=== PATIENT | male | born 1965 | race African-American/Black ===

== ENCOUNTER 2018-08-25 20:35 | Emergency (ER) | payer MEDICAID ==
[~2018-08-25] VITALS: Ht 182.9 cm; Wt 100.0 kg
[~2018-08-25 20:35] MED LIST: SEROQUEL
[2018-08-25 22:20] VITALS: BP 125/75
[2018-08-25] MEDS ORDERED: LORAZEPAM 0.5MG TABLET PO ONE (22:30)
== END 2018-08-25 22:29 | disposition home or self-care (01) ==
LOC: ER 21:16
DX: F41.1 Generalized anxiety disorder (principal); F20.9 Schizophrenia, unspecified
CPT/HCPCS: 99284

== ENCOUNTER 2019-03-08 22:44 | Emergency (ER) | payer MEDICAID ==
[~2019-03-08] VITALS: Ht 182.9 cm; Wt 102.0 kg
[2019-03-08 23:59] LABS: BASOPHILS % 0.6 % (0.0-2.0); EOSINOPHILS % 0.6 % (0.0-5.0); HEMATOCRIT. 41.8 % (42.0-52.0); HEMOGLOBIN. 14.2 g/dL (14.0-18.0); LYMPHOCYTES % 20.1 % (20.0-50.0); MEAN CORPUSCULAR VOLUME 97.2 fL (80.0-94.0); NEUTROPHILS % 66.7 % (40.0-76.0); PLATELET 277 x1000/uL (130-400); RED CELL DISTRIBUTION WIDTH 14.2 % (11.6-14.6)
[2019-03-09 00:05] LABS: CHLORIDE 112 mEq/L (98-107)
[2019-03-09 00:09] LABS: ETHANOL BLOOD < 10 mg/dL
[2019-03-09 01:47] LABS: CLARITY URINE CLEAR (CLEAR); COLOR URINE YELLOW (YELLOW); KETONES URINE TRACE (NEGATIVE); LEUKOCYTE ESTERASE URINE NEGATIVE (NEGATIVE); NITRITE URINE NEGATIVE (NEGATIVE); OCCULT BLOOD URINE NEGATIVE (NEGATIVE); PH URINE 5.5 (4.5-8.0); PROTEIN URINE 1+ (NEGATIVE); SPECIFIC GRAVITY URINE 1.026 (1.005-1.030)
[2019-03-09 01:59] LABS: *AMPHETAMINES SCREEN URINE NEGATIVE (NEGATIVE); *BARBITURATES SCREEN URINE NEGATIVE (NEGATIVE); *BENZODIAZEPINES SCREEN URINE NEGATIVE (NEGATIVE); *COCAINE SCREEN URINE PRESUMTIVE POSITIVE (NEGATIVE); METHADONE URINE SCREEN NEGATIVE (NEGATIVE)
[2019-03-09 02:00] LABS: CANNABINOID URINE SCREEN PRESUMTIVE POSITIVE (NEGATIVE); OPIATES URINE SCREEN NEGATIVE (NEGATIVE); PHENCYCLIDINE URINE SCREEN PRESUMTIVE POSITIVE (NEGATIVE)
[2019-03-09 10:45] VITALS: BP 130/74
== END 2019-03-09 11:00 | disposition home or self-care (01) ==
LOC: ER 22:44
DX: F16.10 Hallucinogen abuse, uncomplicated (principal); F12.10 Cannabis abuse, uncomplicated; F14.10 Cocaine abuse, uncomplicated; R45.850 Homicidal ideations; F31.9 Bipolar disorder, unspecified; F20.9 Schizophrenia, unspecified; F43.10 Post-traumatic stress disorder, unspecified
CPT/HCPCS: 36415; 80305; 80320; 99285; G0480

== ENCOUNTER 2019-03-21 20:00 | Emergency (ER) | payer MEDICAID ==
[~2019-03-21] VITALS: Ht 182.9 cm; Wt 106.0 kg
[2019-03-21] MEDS ORDERED: NALOXONE HCL 0.4 MG/ML 1ML VIAL IM ONE (20:30)
[2019-03-21 21:47] LABS: BASOPHILS % 0.8 % (0.0-2.0); EOSINOPHILS % 1.4 % (0.0-5.0); HEMATOCRIT. 41.4 % (42.0-52.0); HEMOGLOBIN. 13.8 g/dL (14.0-18.0); LYMPHOCYTES % 28.6 % (20.0-50.0); MEAN CORPUSCULAR HEMOGLOBIN 32.9 pg (28.0-32.0); MEAN CORPUSCULAR VOLUME 98.7 fL (80.0-94.0); MEAN PLATELET VOLUME 7.1 fl (7.4-10.4); NEUTROPHILS % 58.2 % (40.0-76.0); PLATELET 272 x1000/uL (130-400); RED CELL DISTRIBUTION WIDTH 13.9 % (11.6-14.6)
[2019-03-21 21:50] LABS: CHLORIDE 114 mEq/L (98-107)
[2019-03-21 21:54] LABS: ETHANOL BLOOD 164 mg/dL
[2019-03-22 00:15] VITALS: BP 115/74
[2019-03-22 00:45] LABS: CLARITY URINE CLEAR (CLEAR); COLOR URINE YELLOW (YELLOW); KETONES URINE TRACE (NEGATIVE); LEUKOCYTE ESTERASE URINE NEGATIVE (NEGATIVE); NITRITE URINE NEGATIVE (NEGATIVE); OCCULT BLOOD URINE NEGATIVE (NEGATIVE); PROTEIN URINE NEGATIVE (NEGATIVE); UROBILINOGEN URINE 0.2 E.U./dL (0.2-1.0)
[2019-03-22 01:15] LABS: *AMPHETAMINES SCREEN URINE NEGATIVE (NEGATIVE); *BARBITURATES SCREEN URINE NEGATIVE (NEGATIVE); *BENZODIAZEPINES SCREEN URINE NEGATIVE (NEGATIVE); *COCAINE SCREEN URINE NEGATIVE (NEGATIVE)
[2019-03-22 01:16] LABS: CANNABINOID URINE SCREEN PRESUMTIVE POSITIVE (NEGATIVE); METHADONE URINE SCREEN NEGATIVE (NEGATIVE); OPIATES URINE SCREEN NEGATIVE (NEGATIVE); PHENCYCLIDINE URINE SCREEN PRESUMTIVE POSITIVE (NEGATIVE)
== END 2019-03-22 00:54 | disposition left against medical advice (07) ==
LOC: ER 20:00
DX: T51.0X1A Toxic effect of ethanol, accidental (unintentional), initial encounter (principal); F31.9 Bipolar disorder, unspecified; F20.9 Schizophrenia, unspecified; F14.10 Cocaine abuse, uncomplicated; F12.10 Cannabis abuse, uncomplicated; Y92.89 Other specified places as the place of occurrence of the external cause
CPT/HCPCS: 36415; 70450; 80053; 80305; 80307; 80320; 80329; 81003; 85025; 96372; 99284; J2310; Z7610; G0480

== ENCOUNTER 2020-02-07 02:45 | Emergency (ER) | payer MEDICAID ==
[~2020-02-07] VITALS: Ht 180.3 cm; Wt 91.0 kg
[2020-02-07] MEDS ORDERED: HALOPERIDOL LACTATE 5MG/ML VIAL IM ONE ×3 (03:00→08:30)
[2020-02-07] MEDS ORDERED: LORAZEPAM 2MG/ML CPJ IM ONE (03:15)
[2020-02-07] MEDS ORDERED: DIPHENHYDRAMINE 50MG/ML VIAL IM ONE (03:15)
[2020-02-07] MEDS ORDERED: LORAZEPAM 2MG/ML CPJ IM PRN (08:15)
[2020-02-07] MEDS ORDERED: LORAZEPAM 2MG/ML CPJ IM STA (12:30)
[2020-02-07] MEDS ORDERED: OLANZAPINE 10 MG/VIAL IM STA (12:30)
[2020-02-07 12:46] LABS: BASOPHILS % 0.5 % (0.0-2.0); EOSINOPHILS % 0.5 % (0.0-5.0); HEMATOCRIT. 44.6 % (42.0-52.0); HEMOGLOBIN. 15.2 g/dL (14.0-18.0); LYMPHOCYTES % 19.5 % (20.0-50.0); MEAN CORPUSCULAR HEMOGLOBIN 33.3 pg (28.0-32.0); MEAN CORPUSCULAR VOLUME 97.7 fL (80.0-94.0); MEAN PLATELET VOLUME 7.1 fl (7.4-10.4); MONOCYTES % 11.1 % (2.0-8.0); NEUTROPHILS % 68.4 % (40.0-76.0); PLATELET 247 x1000/uL (130-400); RED BLOOD CELL COUNT 4.56 mill/uL (4.7-6.1); RED CELL DISTRIBUTION WIDTH 13.4 % (11.6-14.6)
[2020-02-07 12:53] LABS: CHLORIDE 110 mEq/L (98-107)
[2020-02-07 12:57] LABS: ETHANOL BLOOD < 10 mg/dL
[2020-02-07 17:24] LABS: CLARITY URINE CLEAR (CLEAR); COLOR URINE YELLOW (YELLOW); KETONES URINE TRACE (NEGATIVE); LEUKOCYTE ESTERASE URINE NEGATIVE (NEGATIVE); NITRITE URINE NEGATIVE (NEGATIVE); OCCULT BLOOD URINE NEGATIVE (NEGATIVE); PH URINE 5.5 (4.5-8.0); PROTEIN URINE NEGATIVE (NEGATIVE); SPECIFIC GRAVITY URINE 1.022 (1.005-1.030); UROBILINOGEN URINE 0.2 E.U./dL (0.2-1.0)
[2020-02-07 17:33] LABS: METHADONE URINE SCREEN NEGATIVE (NEGATIVE); OPIATES URINE SCREEN NEGATIVE (NEGATIVE)
[2020-02-07 17:34] LABS: *AMPHETAMINES SCREEN URINE NEGATIVE (NEGATIVE); *BARBITURATES SCREEN URINE NEGATIVE (NEGATIVE); *BENZODIAZEPINES SCREEN URINE NEGATIVE (NEGATIVE); *COCAINE SCREEN URINE NEGATIVE (NEGATIVE); CANNABINOID URINE SCREEN PRESUMTIVE POSITIVE (NEGATIVE); PHENCYCLIDINE URINE SCREEN PRESUMTIVE POSITIVE (NEGATIVE)
[2020-02-08 04:00] VITALS: BP 178/105
== END 2020-02-08 06:12 | disposition home or self-care (01) ==
LOC: EDUNIT# 02:45 → ER 03:42
DX: F16.129 Hallucinogen abuse with intoxication, unspecified (principal); F99 Mental disorder, not otherwise specified; I10 Essential (primary) hypertension; Z78.1 Physical restraint status
CPT/HCPCS: 36415; 70450; 80053; 80305; 80320; 81003; 85025; 96372; 99285; J1200; J1630; J2060; G0480

== ENCOUNTER 2020-03-29 21:04 | Emergency (ER) | payer MEDICAID ==
[~2020-03-29] VITALS: Ht 175.3 cm; Wt 104.0 kg
[2020-03-29 21:06] VITALS: BP 132/89
== END 2020-03-29 21:32 | disposition left against medical advice (07) ==
LOC: ER 21:04
DX: M79.605 Pain in left leg (principal); Z53.21 Procedure and treatment not carried out due to patient leaving prior to being seen by health care provider

== ENCOUNTER 2020-03-29 23:35 | Emergency (ER) | payer MEDICAID ==
[~2020-03-29] VITALS: Ht 188 cm; Wt 100.0 kg
[2020-03-30] MEDS ORDERED: KETOROLAC 60MG/2ML VIAL IM ONE (00:15)
[2020-03-30 00:53] VITALS: BP 125/86
[2020-03-30] MEDS ORDERED: IBUPROFEN 600MG TABLET PO ONE (01:00)
== END 2020-03-30 01:07 | disposition home or self-care (01) ==
LOC: ER 23:35
DX: M25.562 Pain in left knee (principal); I10 Essential (primary) hypertension; F16.10 Hallucinogen abuse, uncomplicated; V03.10XA Pedestrian on foot injured in collision with car, pick-up truck or van in traffic accident, initial encounter; Y93.89 Activity, other specified; Y92.488 Other paved roadways as the place of occurrence of the external cause
CPT/HCPCS: 73562; 96372; 99283; J1885

== ENCOUNTER 2020-06-02 12:36 | Emergency (ER) | payer MEDICAID ==
[~2020-06-02] VITALS: Ht 188 cm; Wt 120.0 kg
[2020-06-02 12:41] VITALS: BP 166/106
== END 2020-06-02 13:07 | disposition left against medical advice (07) ==
LOC: ER 12:36
DX: G45.9 Transient cerebral ischemic attack, unspecified (principal); I10 Essential (primary) hypertension; Z53.29 Procedure and treatment not carried out because of patient's decision for other reasons
CPT/HCPCS: 99283

== ENCOUNTER 2022-05-16 01:28 | Emergency (ER) | payer MEDICAID ==
[~2022-05-16] VITALS: Ht 180.3 cm; Wt 116.8 kg
[2022-05-16 01:37] VITALS: BP 189/102
[2022-05-16] MEDS ORDERED: IBUP-2028 PO (05:21)
[2022-05-16] MEDS ORDERED: T3 PO (05:21)
== END 2022-05-16 05:57 | disposition home or self-care (01) ==
LOC: ER 01:28
DX: M54.50 Low back pain, unspecified (principal); I10 Essential (primary) hypertension; F16.10 Hallucinogen abuse, uncomplicated; F43.10 Post-traumatic stress disorder, unspecified
CPT/HCPCS: 99281

== ENCOUNTER 2023-02-17 22:28 | Emergency (ER) | payer MEDICAID ==
[~2023-02-17] VITALS: Ht 182.9 cm; Wt 108.0 kg
[~2023-02-17 22:28] MED LIST changes: +IBUP-2028 PO; +T3 PO
[2023-02-17 22:31] VITALS: BP 133/85
== END 2023-02-17 22:57 | disposition home or self-care (01) ==
LOC: ER 22:38
DX: F10.129 Alcohol abuse with intoxication, unspecified (principal); Y90.0 Blood alcohol level of less than 20 mg/100 ml; I10 Essential (primary) hypertension; Z87.891 Personal history of nicotine dependence
CPT/HCPCS: 99283

== ENCOUNTER 2023-02-22 09:15 | Emergency (ER) | payer MEDICAID ==
[~2023-02-22] VITALS: Ht 182.9 cm; Wt 123.0 kg
[2023-02-22 09:23] VITALS: BP 154/99
[2023-02-22] MEDS ORDERED: ACETAMINOPHEN 325MG TABLET PO ONE (09:30)
== END 2023-02-22 10:00 | disposition left against medical advice (07) ==
LOC: ER 09:15
DX: M79.671 Pain in right foot (principal); M25.511 Pain in right shoulder; Y04.0XXA Assault by unarmed brawl or fight, initial encounter; Y93.89 Activity, other specified; Y92.89 Other specified places as the place of occurrence of the external cause; Y99.8 Other external cause status
CPT/HCPCS: 99283